=== PATIENT | female | born 1970 | race Caucasian/White ===

== ENCOUNTER 2016-10-28 23:09 | Inpatient (IN) | payer SELFPAY ==
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
--- NOTE | ~2016-10-28 | HP ---
Unit #: [id number] #: [id number] Patient: GIBRAN RÍOS [id number] [place] [address] [id number] MR#: [id number] NAME: GIBRAN RÍOS. ROOM: P171 Age: 46 Sex: F Admission Date: 10/28/2016 : 1970 Attending Physician: Ezequiel Felipe M.D. Admitting Physician: Ezequiel Felipe M.D. Primary Care Physician: Primary Care Physician No HISTORY AND PHYSICAL HISTORY OF PRESENT ILLNESS Gibran is a 46 year old admitted to [facility] because of her abuse of alcohol. She has had other admissions to this facility for the same. PAST MEDICAL HISTORY 1. Long history of alcohol abuse. 2. COPD. 3. History of CVA (?). PAST SURGICAL HISTORY Nothing reported. ALLERGIES Tylenol. SOCIAL HISTORY Smokes 1 pack per day. Drinks up to a fifth of liquor on a daily basis and denies illicit drug use. FAMILY HISTORY Medically noncontributory. REVIEW OF SYSTEMS CONSTITUTIONAL: No fever or chills. HEENT: Denies any sore throat, ear pain or runny nose. CARDIOVASCULAR: Denies chest pain, irregular heart rhythm or palpitations. CHEST: Denies shortness of breath or cough. No hemoptysis. GASTROINTESTINAL: Denies nausea, vomiting, diarrhea or chronic constipation. ENDOCRINE: Denies history of increased thirst or urination. No recent significant weight loss or gain. GENITOURINARY: Denies dysuria, frequency, or hematuria. SKIN: Denies any rashes. HEMATOLOGIC: Denies history of increased bleeding or bruising. MUSCULOSKELETAL: Denies any hot, swollen joints. No generalized muscle pain. NEUROLOGIC: Denies problems with vision or speech. No frequent, severe headaches. No numbness, tingling or weakness in any extremities. Denies loss of bladder or bowel control. CURRENT MEDICATIONS Detox protocol. Unit #: [id number] #: [id number] Patient: GIBRAN RÍOS PHYSICAL EXAMINATION GENERAL: Alert, obese, in no apparent distress. VITAL SIGNS: Blood pressure 154/96, heart rate 62, respirations 16, temperature 98.6. WEIGHT: 160. HEIGHT: 5 feet 2 inches. SKIN: Warm and dry without rash or lesion. HEENT: Normocephalic. TMs not viewed. Oral and nasal passages clear. Conjunctivae clear. PERRLA. EOMs intact. NECK: Supple without lymphadenopathy or thyromegaly. HEART: Regular rate and rhythm without murmur. LUNGS: Clear. ABDOMEN: Soft, nontender. : Not done. EXTREMITIES: No evidence of cyanosis, clubbing or edema. Moves all without focal deficit. NEUROLOGICAL: Grossly within normal limits. Cranial Nerves: II: Visual kelly are intact. III, IV AND : Extraocular movements are intact. Pupils are equal, round and reactive to light. V: Facial sensation is grossly normal. VII: Facial movements and expression are normal. VIII: Auditory acuity grossly intact. IX, X: Uvula is midline. Phonation is normal. XI: Patient shrugs shoulders and turns head normally. XII: Tongue protrudes in the midline. Sensory and Motor Function: Sensory and motor sensation is grossly normal. Motor: moves all extremities well. Coordination: Gait is normal. Deep Tendon Reflexes: Intact. IMPRESSION Psychiatric admission. RECOMMENDATIONS PSYCHIATRIC: Per psychiatrist. MEDICAL: See no contraindications to participate in facility's activities. MEDICAL PROGNOSIS Good. MEDICAL CONDITION Stable. Dictated by... Deyanira TinsleyAPam. for Shravan Olsen/miquel TD: 10/29/2016 17:35 JOB #: [id number] Unit #: [id number] #: [id number] Patient: GIBRAN RÍOS HISTORY AND PHYSICAL X Deanna Montoya HISTORY AND PHYSICAL
--- NOTE | ~2016-10-28 | PN ---
Unit #: [id number] #: [id number] Patient: GIBRAN RÍOS [id number] [facility] [address] [place] [address] [id number] MR#: [id number] NAME: GIBRAN RÍOS. ROOM: P171 Age: 46 Sex: F Admission Date: 10/28/2016 : 1970 Attending Physician: Ezequiel Felipe M.D. Admitting Physician: Ezequiel Felipe M.D. Primary Care Physician: Primary Care Physician Mia LIRA PROGRESS NOTES DATE 10/29/2016 DISCUSSION Gibran Ríos is a 46-year-old female seen on 10/29/2016. Patient interviewed. Chart reviewed. Obtained information from nursing staff. Patient was compliant, cooperative, isolative, guarded, flat affect. Patient is reporting still having withdrawal symptoms, anxious, nervous. Complete review of system unremarkable. MENTAL STATUS EXAMINATION General appearance, patient dressed casually. Attention span, concentration poor. Oriented in place and person. Mood and affect labile. Speech was rapid. Thought process circumstantial. Association, patient denied any thoughts of harming self or others, withdrawn, isolative, seclusive. Recent and remote memory poor. Insight and judgement poor. DIAGNOSIS Alcohol use disorder, severe. ASSESSMENT/PLAN Advised to continue with current medication and therapeutic protocol. Will monitor response to medication and make further adjustment of medication if needed. Dictated by... Shravan Sinha/miquel TD: 10/30/2016 22:29 JOB #: [id number] Unit #: [id number] #: [id number] Patient: GIBRAN RÍOS [facility] PROGRESS NOTES X Ezequiel Felipe MD PROGRESS NOTE
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
[2016-10-29 09:43] LABS: BASOPHIL# 0.1 X10e3 (0-0.3); BASOPHIL% 0.7 % (0-2.5); EOSINOPHIL# 0.2 X10e3 (0-0.7); HEMATOCRIT 44.4 % (35.0-45.0); HEMOGLOBIN 14.7 gm/dL (12.0-16.0); LYMPHOCYTE# 3.2 X10e3 (1.0-3.5); LYMPHOCYTE% 33.6 % (17.0-45.0); MEAN CELL VOLUME 90.6 FL (83-96); MEAN CORPUSCULAR HGB CONC 33.1 g/dL (30-36); MEAN PLATELET VOLUME 8.4 FL (6.5-11.5); MONOCYTE# 0.9 X10e3 (0-1.0); MONOCYTE% 9.3 % (3.0-12.0); NEUTROPHIL# 5.1 X10e3 (1.5-7.1); NEUTROPHIL% 54.4 % (40-75); PLATELET COUNT 305 X10e3 (140-420); RED BLOOD COUNT 4.89 X10e (3.90-5.30); RED CELL DISTRIBUTION WIDTH 13.3 % (11.0-15.5); WHITE BLOOD COUNT 9.4 X10e3 (4.0-10.5)
[2016-10-29 09:54] LABS: DIFF IND NO
[2016-10-29 10:04] LABS: THYROID STIMULATING HORMONE 3.82 uIU/ml (0.34-5.60)
[2016-10-29 10:15] LABS: FREE THYROXIN (T4) 0.82 ng/dL (0.58-1.64)
[2016-10-29 10:33] LABS: ALBUMIN SERUM 4.1 g/dL (3.5-5.0); ALKALINE PHOSPHATASE 92 U/L (32-92); ALT (SGPT) 14 U/L (10-40); AST (SGOT) 17 U/L (10-42); BILIRUBIN,TOTAL 0.5 mg/dL (0.2-2.0); BLOOD UREA NITROGEN 12 mg/dL (9-23); BUN/CREATININE RATIO 13.33; CALCIUM SERUM 9.5 mg/dL (8.4-10.2); CARBON DIOXIDE 28 mmol/L (22-31); CHLORIDE 104 mmol/L (100-111); CREATININE SERUM 0.9 mg/dL (0.6-1.4); GLOM FILT RATE Estimated ABOVE60 mL/min (>60); GLUCOSE FASTING 98 mg/dL (70-110); POTASSIUM 4.3 mmol/L (3.5-5.1); PROTEIN TOTAL SERUM 7.4 g/dL (6.0-8.3); SODIUM 142 mmol/L (135-145)
[2016-10-30 09:40] LABS: URINE APPEARANCE CLEAR; URINE BILIRUBIN NEG (NEG); URINE BLOOD NEG (NEG); URINE COLOR DK YELLOW; URINE GLUCOSE NEG (NEG); URINE KETONE NEG (NEG); URINE LEUKOCYTE ESTERASE NEG (NEG); URINE NITRATE NEG (NEG); URINE PROTEIN NEG (NEG); URINE SPECIFIC GRAVITY 1.025 (1.003-1.035)
[2016-10-30 10:45] LABS: AMPHETAMINE NEG (NEG); BARBITURATES NEG (NEG); BENZODIAZEPINES POS (NEG); COCAINE NEG (NEG); MARIJUANA POS (NEG); OPIATES NEG (NEG); TRICYCLIC ANTIDEPRESSANTS NEG (NEG); U METHADONE NEG (NEG)
== END 2016-10-30 17:30 | disposition home or self-care (01) | DRG 897 ==
LOC: P1E 23:09
PROVIDERS: Psychiatry & Neurology Psychiatry
PROC: HZ2ZZZZ Detoxification Services for Substance Abuse Treatment (ICD-10-PCS; principal; 2016-10-29)
DX: F10.20 Alcohol dependence, uncomplicated (principal); F39 Unspecified mood [affective] disorder; Z96.649 Presence of unspecified artificial hip joint
CPT/HCPCS: 80053; 80307; 81003; 84439; 84443; 85025; 86592